=== PATIENT | female | born 1940 | race Caucasian/White ===

== ENCOUNTER 2023-06-19 13:30 | Emergency (ER) | payer MEDICARE, SELFPAY ==
[2023-06-19 13:33] VITALS: BP 140/64; PULSE 67; RESP 16; TEMP 36.8; O2SAT 100
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
[2023-06-19] MEDS: Ketorolac 15 MG/ML VIAL IM (15:32)
[2023-06-19 15:36] VITALS: PULSE 71; RESP 16; O2SAT 100
== END 2023-06-19 15:42 | disposition home or self-care (01) ==
PROVIDERS: Emergency Provider Student in an Organized Health Care Education/Training Program
DX: S42.222A 2-part displaced fracture of surgical neck of left humerus, initial encounter for closed fracture (principal); W17.4XXA Fall from dock, initial encounter; Y93.19 Activity, other involving water and watercraft; Y92.89 Other specified places as the place of occurrence of the external cause; Y99.9 Unspecified external cause status
CPT/HCPCS: 96372; 99284; 73030; 99283; J1885

== ENCOUNTER 2023-06-29 10:24 | Outpatient (CLI) | payer MEDICARE, SELFPAY ==
--- NOTE | 2023-06-29 09:00 | DI.RAD_ITS ---
Exam(s) XR SHOULDER LT COMPLETE 2+V EXAM: XR SHOULDER LT COMPLETE 2+V CLINICAL HISTORY: left humeral fx. TECHNIQUE: 2D digital imaging was performed of the left shoulder. Two images were obtained. AP and Y views were obtained. COMPARISON: CR,XR XR SHOULDER LT COMPLETE 2+V from 06/19/2023 FINDINGS: BONES: There is a stable comminuted proximal left humeral fracture. No new fracture is seen. No bon y destructive lesion is seen. JOINTS: No dislocation present. The acromioclavicular joint is unremarkable. SOFT TISSUE: Normal. IMPRESSION: Stable proximal humeral fracture. DATA REPOSITORY: RADIATION DOSE DELIVERED:
== END 2023-06-29 10:25 | disposition home or self-care (01) ==
LOC: DIORS 10:25
PROVIDERS: Visit Provider Student in an Organized Health Care Education/Training Program
DX: S42.352A Displaced comminuted fracture of shaft of humerus, left arm, initial encounter for closed fracture (principal); X58.XXXA Exposure to other specified factors, initial encounter; Z47.89 Encounter for other orthopedic aftercare
CPT/HCPCS: 99203; 73030

== ENCOUNTER 2023-07-14 14:21 | Outpatient (CLI) | payer MEDICARE, SELFPAY ==
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
== END 2023-07-14 14:22 | disposition home or self-care (01) ==
LOC: DIORS 14:21
PROVIDERS: Visit Provider Student in an Organized Health Care Education/Training Program
DX: S42.202D Unspecified fracture of upper end of left humerus, subsequent encounter for fracture with routine healing; X58.XXXD Exposure to other specified factors, subsequent encounter
CPT/HCPCS: 99213; 73030

== ENCOUNTER 2024-05-17 14:18 | Outpatient (CLI) | payer MEDICARE, SELFPAY ==
--- NOTE | 2024-05-17 13:15 | DI.RAD_ITS ---
Exam(s) XR SHOULDER RT COMPLETE 2+V EXAM: XR SHOULDER RT COMPLETE 2+V INDICATION: RIGHT PROXIMAL HUMERUS FX. COMPARISON: DX XR SHOULDER COMPLETE RIGHT from 05/04/2024 TECHNIQUE: 2D digital imaging was performed. Two views. FINDINGS: No change in alignment of the fracture of the humeral head, nondisplaced. Glenohumeral joint space i s maintained. Mild degenerative changes noted in AC joint and glenohumeral joint. Surgical clips no eber in right chest wall. DATA REPOSITORY: RADIATION DOSE DELIVERED:
== END 2024-05-17 14:19 | disposition home or self-care (01) ==
LOC: DIORS 14:19
PROVIDERS: Visit Provider Student in an Organized Health Care Education/Training Program
DX: S42.201D Unspecified fracture of upper end of right humerus, subsequent encounter for fracture with routine healing; W01.0XXD Fall on same level from slipping, tripping and stumbling without subsequent striking against object, subsequent encounter
CPT/HCPCS: 99213; 73030

== ENCOUNTER 2024-06-14 11:38 | Outpatient (CLI) | payer MEDICARE, SELFPAY ==
--- NOTE | 2024-06-14 10:30 | DI.RAD_ITS ---
Exam(s) XR SHOULDER RT COMPLETE 2+V EXAM: XR SHOULDER RT COMPLETE 2+V CLINICAL HISTORY: F/U FRACTURE. TECHNIQUE: 2D digital imaging was performed of the right shoulder. Two images were obtained. Grash ey and Y views were obtained. COMPARISON: CR XR SHOULDER RT COMPLETE 2+V from 05/17/2024 FINDINGS: BONES: There is stable alignment of the fracture of the proximal humerus. No new fracture is seen. No bony destructive lesion is seen. JOINTS: No dislocation present. There are degenerative changes seen at the acromioclavicular joint. SOFT TISSUE: Surgical clips are again seen in the right axilla. IMPRESSION: Stable alignment of the proximal right humeral fracture. DATA REPOSITORY: RADIATION DOSE DELIVERED:
== END 2024-06-14 11:39 | disposition home or self-care (01) ==
LOC: DIORS 11:38
PROVIDERS: Visit Provider Student in an Organized Health Care Education/Training Program
DX: S42.201D Unspecified fracture of upper end of right humerus, subsequent encounter for fracture with routine healing; X58.XXXD Exposure to other specified factors, subsequent encounter
CPT/HCPCS: 99213; 73030

== ENCOUNTER 2024-07-18 15:51 | Outpatient (CLI) | payer MEDICARE, SELFPAY ==
--- NOTE | 2024-07-18 09:56 | DI.RAD_ITS ---
Exam(s) XR SHOULDER RT COMPLETE 2+V EXAM: XR SHOULDER RT COMPLETE 2+V CLINICAL HISTORY: F/U FRACTURE. TECHNIQUE: 2D digital imaging was performed. COMPARISON: CR XR SHOULDER RT COMPLETE 2+V from 06/14/2024 FINDINGS: 3 views Stable appearance of the healing fracture site in the humeral head-neck. Fracture line is less visib le. No displacement. No subluxation of the glenohumeral joint nor diminution of the subacromial spa ce. No abnormal soft tissue calcifications. IMPRESSION: Satisfactory appearance. Further healing evident. DATA REPOSITORY: RADIATION DOSE DELIVERED:
== END 2024-07-18 15:52 | disposition home or self-care (01) ==
LOC: DIORS 15:51
PROVIDERS: Visit Provider Student in an Organized Health Care Education/Training Program
DX: S42.201D Unspecified fracture of upper end of right humerus, subsequent encounter for fracture with routine healing (principal); X58.XXXD Exposure to other specified factors, subsequent encounter
CPT/HCPCS: 99213; 73030